=== PATIENT | male | born 1990 | race Caucasian/White ===

== ENCOUNTER 2016-09-25 13:44 | Emergency (ER) | payer MEDICAID, OTHER ==
[2016-09-25 13:44] VITALS: BMI 37.5
[2016-09-25 13:58] VITALS: BP 134/93; PULSE 80; RESP 18; TEMP 98; O2SAT 100
--- NOTE | 2016-09-25 14:57 | C.PDOC ---
History Of Present Illness 26 yr old male presents to the ER stating 2 weeks ago he was lifting a heavy box at work when he developed left lower back pain. Patient states he was seen by the company doctor, was given medications and was instructed to go to PT. Patient states he never took any pain medications and never went to PT because the pain started to feel better but 2 days ago the pain came back and it was strong. Patient denies direct trauma, fever, rash, abdominal pain, dysuria, hematuria, leg pain, weakness or numbness. Time Seen by Provider: 09/25/16 14:09 Chief Complaint (Nursing): Back Pain History Per: Patient History/Exam Limitations: no limitations Onset/Duration Of Symptoms: Days (2 weeks ago ), Worse Since (2 days) Current Symptoms Are (Timing): Still Present Past Medical History Reviewed: Historical Data, Nursing Documentation, Vital Signs Vital Signs: Last Vital Signs Temp 98 F 09/25/16 13:53 Pulse 80 09/25/16 13:53 Resp 18 09/25/16 13:53 BP 134/93 H 09/25/16 13:53 Pulse Ox 100 09/25/16 14:59 - Medical History PMH: HTN Family History: States: No Known Family Hx - Social History Hx Tobacco Use: Yes Hx Alcohol Use: Yes Hx Substance Use: No - Immunization History Hx Tetanus Toxoid Vaccination: Yes Hx Influenza Vaccination: No Hx Pneumococcal Vaccination: No Review Of Systems Except As Marked, All Systems Reviewed And Found Negative. Constitutional: Negative for: Fever Gastrointestinal: Negative for: Abdominal Pain Genitourinary: Negative for: Dysuria, Hematuria Musculoskeletal: Positive for: Back Pain (Left lower back pain). Negative for: Leg Pain Skin: Negative for: Rash Physical Exam - Physical Exam Appears: Non-toxic, No Acute Distress Skin: Warm, Dry, No Rash Head: Atraumatic, Normacephalic Ear(s): Bilateral: Normal Oral Mucosa: Moist Throat: Normal, No Erythema, No Exudate, No Drooling Neck: Normal, Normal ROM, No Midline Cervical Tenderness, Supple Chest: Symmetrical, No Tenderness Cardiovascular: Rhythm Regular, No Murmur Respiratory: Normal Breath Sounds, No Rales, No Rhonchi, No Stridor, No Wheezing Gastrointestinal/Abdominal: Normal Exam, Soft, No Tenderness, No Guarding, No Rebound, No Hernia Back: Normal Inspection, No CVA Tenderness, Paraspinal Tenderness (Left paraspinal tenderness ) Extremity: Normal ROM, No Deformity, No Swelling Neurological/Psych: Oriented x3, Normal Speech, Normal Motor Gait: Steady ED Course And Treatment O2 Sat by Pulse Oximetry: 100 Progress Note: Xray ordered, patient did not want any pain medication. 3:10pm- Patient appears to have eloped from ED. Medical Decision Making Medical Decision Making: PLAN: * X-Ray - LS Spine Disposition - Disposition Disposition: ELOPEMENT - ER ONLY Disposition Time: 15:10 Condition: STABLE - Scribe Statement The provider has reviewed the documentation as recorded by the Kayla Pierce Provider Attestation: All medical record entries made by the Kayla were at my direction and personally dictated by me. I have reviewed the chart and agree that the record accurately reflects my personal performance of the history, physical exam, medical decision making, and the department course for this patient. I have also personally directed, reviewed, and agree with the discharge instructions and disposition.
== END 2016-09-25 14:15 | disposition left against medical advice (07) ==
LOC: C.ER 13:44
DX: M54.5 Low back pain (principal)

== ENCOUNTER 2016-11-08 12:21 | Emergency (ER) | payer OTHER ==
[2016-11-08 12:24] VITALS: BMI 36.2
[2016-11-08 12:26] VITALS: O2SAT 98
--- NOTE | 2016-11-08 12:48 | C.PDOC ---
History Of Present Illness 26 yr old male presents to the ER c/o low back pain that started hour [employer] " was going up stairs and have hear some snap in my lower back. Since then, pain gradually worsen over my Left lower back with some radiation to left thigh". Otherwise, pt denies fall, incontinence, saddle anesthesia, weakness, sensory or vascular deficits to B/L LEgs. Patient states he was seen by the company doctor, undergoing physical therapy now. A the time of evaluation, appears in pain. Time Seen by Provider: 11/08/16 12:43 Chief Complaint (Nursing): Back Pain History Per: Patient Onset/Duration Of Symptoms: Gradual Current Symptoms Are (Timing): Worse Quality Of Discomfort: Aching Severity: Severe Past Medical History Reviewed: Historical Data, Nursing Documentation, Vital Signs Vital Signs: Last Vital Signs Temp 97.7 F 11/08/16 14:43 Pulse 59 L 11/08/16 14:43 Resp 20 11/08/16 14:43 BP 104/60 11/08/16 14:43 Pulse Ox 98 11/08/16 14:43 - Medical History PMH: HTN Family History: States: Unknown Family Hx - Social History Hx Tobacco Use: Yes Hx Alcohol Use: No Hx Substance Use: No - Immunization History Hx Tetanus Toxoid Vaccination: No Hx Influenza Vaccination: No Hx Pneumococcal Vaccination: No Review Of Systems Except As Marked, All Systems Reviewed And Found Negative. Constitutional: Negative for: Fever, Chills Eyes: Negative for: Vision Change ENT: Negative for: Throat Pain Cardiovascular: Negative for: Chest Pain, Palpitations Respiratory: Negative for: Cough Gastrointestinal: Negative for: Nausea, Vomiting, Abdominal Pain, Diarrhea Genitourinary: Negative for: Dysuria, Frequency, Incontinence Musculoskeletal: Positive for: Back Pain Skin: Negative for: Rash, Lesions Neurological: Negative for: Weakness, Numbness, Headache, Dizziness Physical Exam - Physical Exam Appears: Well, Non-toxic, No Acute Distress Skin: Normal Color, Warm, Dry, No Rash, No Ecchymosis Eye(s): bilateral: PERRL Nose: Normal Throat: Normal Neck: Normal ROM, Trachea Midline, Supple Cardiovascular: Rhythm Regular Respiratory: No Decreased Breath Sounds, No Accessory Muscle Use, No Stridor, No Wheezing Gastrointestinal/Abdominal: Normal Exam, Soft, No Tenderness, No Distention, No Guarding Back: No CVA Tenderness, No Vertebral Tenderness, Muscle Spasm (Left paraspinal extend down to Left gluteus), Paraspinal Tenderness (diffuse left lumbar) Extremity: No Pedal Edema, No Deformity, No Swelling Neurological/Psych: Oriented x3, Normal Speech, Normal Motor, Normal Sensation, Normal Reflexes ED Course And Treatment O2 Sat by Pulse Oximetry: 98 Pulse Ox Interpretation: Normal - Other Rad L-spine X-Ray: Read By Radiologist Interpretation: PROCEDURE: Radiographs of the Lumbar Spine. HISTORY: pain. COMPARISON: No prior. FINDINGS: BONES: Straightening of the normal lumbar lordosis. No listhesis. No fracture. DISC SPACES: Minimal posterior L5-S1 disc space narrowing. OTHER FINDINGS: None. IMPRESSION: Straightening of the normal lumbar lordosis. Minimal L5-S1 posterior disc space narrowing Progress Note: On re-evaluation, pt is afebrile, hemodynamicaly stable. non- toxic. Ambulatory in ED. Abd: benign. Ext: FAROM, no pedal edema. back: (-) CVA tenderness, (-) midline tenderness. Neurologicaly intact. Imaging review and appears normal. UA -pt refused to give samle. Pt has clinical findings c/ w Left lumbar spine strain, hx of chronic lowerback. Pt advised and ref. to F/ U with PMD In 2-3 days for re-eavl and PM. return if any new changes. Disposition Counseled Patient/Family Regarding: Studies Performed, Diagnosis, Need For Followup - Disposition Referrals: [facility] [Outside] Disposition: HOME/ ROUTINE Disposition Time: 13:52 Condition: FAIR Additional Instructions: Light duty, avoid bending, heavy lifting, etc Take medication as prescribed Follow up with PMD In 2-3 days for re-evaluation. Return to ED if any worsening or new changes. Prescriptions: Ibuprofen [Motrin Tab] 600 mg PO Q6 #20 tab Methocarbamol [Robaxin] 500 mg PO TID #14 tab traMADol [Ultram] 50 mg PO TID #7 tab Instructions: Muscle Spasm (ED), Back Pain (ED) Forms: Work Excuse - Clinical Impression Clinical Impression: Lumbar sprain
--- NOTE | 2016-11-08 13:10 | RAD ---
PROCEDURE: Radiographs of the Lumbar Spine. HISTORY: pain COMPARISON: No prior. FINDINGS: BONES: Straightening of the normal lumbar lordosis. No listhesis. No fracture. DISC SPACES: Minimal posterior L5-S1 disc space narrowing OTHER FINDINGS: None. IMPRESSION: Straightening of the normal lumbar lordosis. Minimal L5-S1 posterior disc space narrowing
[2016-11-08 14:44] VITALS: BP 104/60; PULSE 59; RESP 20; TEMP 97.7
== END 2016-11-08 14:43 | disposition home or self-care (01) ==
LOC: C.ER 12:21
DX: S33.5XXA Sprain of ligaments of lumbar spine, initial encounter (principal); X58.XXXA Exposure to other specified factors, initial encounter
CPT/HCPCS: 72100; 96372; 99284; J1885

== ENCOUNTER 2016-11-29 22:37 | Emergency (ER) | payer OTHER ==
[2016-11-29 22:37] VITALS: BMI 36.2
[2016-11-29 22:46] VITALS: TEMP 98.3
--- NOTE | 2016-11-29 23:16 | C.PDOC ---
History Of Present Illness A 26 y/o male presents to the ER c/o left testicular pain that has been on and off for the last week. Pt notes the complaint as a dull, aching pain that is a 4 /10 in discomfort. Pt denies fever, chills, nausea, vomiting, chest pain, trauma to the area, dysuria, hematuria, penile discharge, incontinence, or any other complaints. Time Seen by Provider: 11/29/16 23:15 Chief Complaint (Nursing): Chest Pain History Per: Patient History/Exam Limitations: no limitations Onset/Duration Of Symptoms: Days, Intermittent Episodes Current Symptoms Are (Timing): Still Present Severity: Mild Pain Scale Rating Of: 4 Quality: Dull, Aching Recent travel outside of the [place]: No Additional History Per: Patient Past Medical History Reviewed: Historical Data, Nursing Documentation, Vital Signs Vital Signs: Last Vital Signs Temp 98.3 F 11/29/16 22:43 Pulse 74 11/29/16 23:30 Resp 16 11/29/16 22:43 BP 151/103 H 11/29/16 22:43 Pulse Ox 98 11/30/16 00:17 - Medical History PMH: HTN Family History: States: Unknown Family Hx - Social History Hx Tobacco Use: Yes Hx Alcohol Use: No Hx Substance Use: No - Immunization History Hx Tetanus Toxoid Vaccination: No Hx Influenza Vaccination: No Hx Pneumococcal Vaccination: No Review Of Systems Constitutional: Negative for: Fever, Chills, Other (Trauma to the area) Cardiovascular: Negative for: Chest Pain Gastrointestinal: Negative for: Nausea, Vomiting Genitourinary: Positive for: Scrotal Pain (Testicular pain). Negative for: Dysuria, Incontinence, Hematuria, Penile Discharge Skin: Negative for: Rash, Lesions Neurological: Negative for: Weakness Psych: Positive for: Anxiety Physical Exam - Physical Exam Appears: Non-toxic, No Acute Distress, Other (Appears anxious) Skin: Warm, Dry Gastrointestinal/Abdominal: Soft, No Tenderness, No Distention, No Guarding Male Genital: Normal Inspection, Testicular Tenderness (Left testicular tenderness), No Testicular Swelling (No obvious masses palpated), No Inguinal Tenderness, No Inguinal Swelling, No Scrotal Swelling, No Circumcised Extremity: Normal ROM Extremity: Bilateral: Atraumatic Neurological/Psych: Oriented x3, Normal Speech, Normal Cognition Gait: Steady ED Course And Treatment - Laboratory Results Result Diagrams: 11/29/16 23:44 11/29/16 23:44 ECG: Interpreted By Me, Viewed By Me ECG Rhythm: Sinus Rhythm (64), Nonspecific Changes O2 Sat by Pulse Oximetry: 98 (RA) Pulse Ox Interpretation: Normal Reevaluation Time: 01:37 Reassessment Condition: Improved Disposition Counseled Patient/Family Regarding: Studies Performed, Diagnosis - Disposition Referrals: Terence Adamson MD [Medical Doctor] - Disposition: HOME/ ROUTINE Disposition Time: 23:16 Condition: FAIR Instructions: Groin Pain (ED) - Clinical Impression Clinical Impression: Left groin pain - Scribe Statement The provider has reviewed the documentation as recorded by the Scribe Maria R singh All medical record entries made by the Scribe were at my direction and personally dictated by me. I have reviewed the chart and agree that the record accurately reflects my personal performance of the history, physical exam, medical decision making, and the department course for this patient. I have also personally directed, reviewed, and agree with the discharge instructions and disposition.
[2016-11-29 23:49] LABS: BASO # 0.1 K/uL (0.0-0.2); EOS # 0.2 K/uL (0.0-0.7); EOS % 2.6 % (0.0-4.0); HEMATOCRIT 40.8 % (35.0-51.0); LYMPH # 1.8 K/uL (1.0-4.3); LYMPH % 23.8 % (20.0-40.0); MEAN CELL VOLUME 86.4 fL (80.0-94.0); MEAN CORPUSCULAR HGB CONC 35.9 g/dL (33.0-37.0); MEAN PLATELET VOLUME 7.6 fL (7.2-11.7); MONO # 0.8 K/uL (0.0-0.8); MONO % 11.2 % (0.0-10.0); NRBC % 0.2 % (0.0-2.0); RED CELL DISTRIBUTION WIDTH 13.2 % (11.5-14.5); WHITE BLOOD COUNT 7.4 K/uL (4.8-10.8)
[2016-11-29 23:52] LABS: RBC URINE < 1 /hpf (0-3); URINE BACTERIA RARE (<OCC); URINE BILIRUBIN NEGATIVE (NEGATIVE); URINE BLOOD NEGATIVE (NEGATIVE); URINE COLOR Yellow (YELLOW); URINE GLUCOSE (UA) NORMAL (Normal); URINE KETONE NEGATIVE (NEGATIVE); URINE LEUKOCYTE ESTERASE NEG Leu/uL (Negative); URINE PROTEIN NEGATIVE (NEGATIVE); URINE UROBILINOGEN NORMAL mg/dL (0.2-1.0); WBC URINE 1 /hpf (0-5)
[2016-11-29 23:56] LABS: CHLORIDE 101 mmol/L (98-107); POTASSIUM 3.7 mmol/L (3.6-5.2); SODIUM 135 mmol/L (132-148)
[2016-11-29 23:59] LABS: BLOOD UREA NITROGEN 19 mg/dL (9-20); CARBON DIOXIDE 26 mmol/L (22-30); GFR AFRICAN-AMERICAN > 60
[2016-11-30] LABS: CALCIUM 8.5 mg/dl (8.6-10.4); GLUCOSE,RANDOM 100 mg/dL (75-110)
--- NOTE | 2016-11-30 01:14 | US ---
EXAM: US Scrotum CLINICAL HISTORY: 26 years old, male; Signs and symptoms; Other: Lump felt; Additional info: Left testicular pain TECHNIQUE: Real-time ultrasound of the scrotum with color Doppler and image documentation. COMPARISON: No relevant prior studies available. FINDINGS: Right testicle: No mass. No torsion. Left testicle: No mass. No torsion. Epididymides: Small epididymal cysts. Scrotum: Small bilateral hydroceles. IMPRESSION: 1.No acute findings. 2.Non-acute findings are described above.
[2016-11-30 01:58] VITALS: BP 127/72; PULSE 75; RESP 18; O2SAT 99
--- NOTE | 2016-12-27 08:01 | CARD ---
APPROVED REPORT EKG Measurement Heart [id number] MD [id number] <Conclusion> Normal sinus rhythm Normal ECG
== END 2016-11-30 01:58 | disposition home or self-care (01) ==
LOC: C.ER 22:37
DX: R10.32 Left lower quadrant pain (principal)